=== PATIENT | female | born 1995 | race Two or more races ===

== ENCOUNTER 2018-01-06 14:35 | Observation (INO) | payer MEDICAID ==
[~2018-01-06] VITALS: Ht 160 cm; Wt 53.5 kg
[2018-01-06] MEDS ORDERED: LACTATED RINGER'S 1,000 ML IV ONE (15:15)
== END 2018-01-06 16:25 | disposition home or self-care (01) | DRG 566 ==
LOC: LDRP 14:35
PROVIDERS: ADMIT Specialist; ATTEND Specialist
DX: O26.892 Other specified pregnancy related conditions, second trimester (principal); R10.9 Unspecified abdominal pain; Z3A.24 24 weeks gestation of pregnancy
CPT/HCPCS: 59025; 76805; 81002; G0378

== ENCOUNTER 2018-03-21 12:45 | Observation (INO) | payer MEDICAID | END 2018-03-21 13:35 | disposition home or self-care (01) | DRG 563 | LOC: LDRP 12:45 | PROVIDERS: ADMIT Specialist; ATTEND Specialist | DX: O60.03 Preterm labor without delivery, third trimester (principal); Z3A.34 34 weeks gestation of pregnancy | CPT/HCPCS: 59025; 81002; G0378 ==

== ENCOUNTER 2018-03-26 17:25 | Inpatient (IN) | payer MEDICAID ==
[~2018-03-26] VITALS: Ht 160 cm; Wt 59.9 kg
[2018-03-26] MEDS ORDERED: TERBUTALINE SULFATE 1 MG/ML 1ML VIAL SC ONE (18:25)
[2018-03-26] MEDS ORDERED: LACTATED RINGER'S 1,000 ML IV ONE (18:33)
[2018-03-26] MEDS ORDERED: TERBUTALINE SULFATE 1 MG/ML 1ML VIAL SC PRN (18:45)
[2018-03-26 19:31] LABS: Alcohol, Urine < 3.0 mg/dL (0-5); Amphetamine Screen, Urine NEGATIVE (NEGATIVE); Barbiturate Scree,Urine NEGATIVE (NEGATIVE); Benzodiazephine Screen, Urine NEGATIVE (NEGATIVE); Cannabinoid Screen, Urine NEGATIVE (NEGATIVE); Cocaine Screen, Urine NEGATIVE (NEGATIVE); Opiate Scree,Urine NEGATIVE (NEGATIVE); Phencyclidine Screen, Urine NEGATIVE (NEGATIVE)
[2018-03-26 19:34] LABS: Urine Bacteria NONE SEEN /hpf (None Seen); Urine Blood TRACE /uL (Negative); Urine Specific Gravity 1.024 (1.001-1.035); Urine WBC <1 /hpf (0 - 5)
[2018-03-26] MEDS ORDERED: BETAMETHASONE ACET (6MG/ML) 5ML VIAL IM ONE (21:00)
[2018-03-26] MEDS ORDERED: BETAMETHASONE ACET (6MG/ML) 5ML VIAL ONE (21:00)
[2018-03-26] MEDS ORDERED: MAGNESIUM SULFATE 40MG/ML 1,000 ML IV SCH (21:31)
[2018-03-26] MEDS ORDERED: MAGNESIUM SULFATE 100 ML IV ONE ×2 (21:45→21:59)
[2018-03-26] MEDS ORDERED: PENICILLIN G POT 5MIL/D5 50ML 50 ML IV ONE (22:00)
[2018-03-26 22:18] LABS: Basophils # (auto) 0 uL; Basophils % (auto) 0.3 % (0.0-2.0); Eosinophils # (auto) 0.1 uL; Eosinophils % (auto) 0.7 % (0.0-7.0); Hematocrit 30.3 % (36.0-46.0); Hemoglobin 10.1 g/dL (12.2-16.2); Lymphocytes % (auto) 22.6 % (10.0-50.0); Mean Corpuscular Hgb Conc. 33.4 g/dL (32.0-36.0); Mean Corpuscular Volume 86.6 fL (80.0-100.0); Monocytes # (auto) 0.6 uL; Monocytes % (auto) 6.5 % (0.0-12.0); Neutrophils # (auto) 6.3 uL; Neutrophils % (auto) 69.9 % (37.0-80.0); Platelet Count (auto) 332 10^3/uL (140-450); Red Cell Distribution Width 13.8 % (11.8-14.3)
[2018-03-26 22:33] LABS: INR 0.87 (0.9-1.15); Partial Thromboplastin Time 27.8 sec (23.78-33.04); Prothrombin Time 9.4 sec (9.27-12.13)
[2018-03-26 22:50] LABS: Albumin 2.3 g/dL (3.4-5.0); Calcium 7.9 mg/dL (8.5-10.1); Potassium 3.1 mmol/L (3.5-5.1)
[2018-03-26 22:53] LABS: BUN/Creatinine Ratio 12.7; Bilirubin, Total 0.2 mg/dL (0.2-1.0); Total Protein 6.3 g/dL (6.4-8.2)
[2018-03-26] MEDS ORDERED: NIFEdipine 10 MG CAP PO SCH (23:00)
[2018-03-27] MEDS ORDERED: MEPERIDINE HCL (25 MG/ML) 1ML VIAL IV PRN
[2018-03-27] MEDS ORDERED: PROMETHAZINE HCL 25 MG/ML 1ML IV PRN (00:15)
[2018-03-27] MEDS ORDERED: LACT. RINGERS/OXYTOCIN 20UNITS 1,000 ML IV SCH (01:14)
[2018-03-27] MEDS ORDERED: PHISODERM TOP SOLN 240ML BTL TOP PRN (01:15)
[2018-03-27] MEDS ORDERED: LIDOCAINE 2%HCL (LOCAL ANESTH.) INJ 20ML MDV ID PRN (01:15)
[2018-03-27] MEDS ORDERED: DERMOPLAST 60ML BOTTLE TOP PRN (01:15)
[2018-03-27] MEDS ORDERED: METHYLERGONOVINE MALEATE 0.2 MG/ML AMP IM PRN (01:15)
[2018-03-27] MEDS ORDERED: WITCH HAZEL-GLYCERIN PAD TOP PRN (01:15)
[2018-03-27] MEDS ORDERED: PENICILLIN G POT 5MILLION UNIT VIAL ONE (01:53)
[2018-03-27] MEDS ORDERED: cefTRIAXone 1GM/50ML D5W 50 ML IV SCH (02:00)
[2018-03-27] MEDS: PENICILLIN G POTASSIUM 2,500,000 UNITS in D5W 5% 50 ML IV SCH ×2 (02:40→06:00)
[2018-03-27] MEDS ORDERED: ONDANSETRON HCL 4 MG/2 ML VIAL ONE (04:11)
[2018-03-27] MEDS ORDERED: ONDANSETRON HCL 4 MG/2 ML VIAL IV ONE (04:30)
[2018-03-27] MEDS ORDERED: HYDR250I6 IM (06:11)
[2018-03-27] MEDS ORDERED: AMOX200S35 PO (06:11)
[2018-03-27] MEDS ORDERED: NIF10C PO (06:11)
[2018-03-27] MEDS ORDERED: PREN-96 PO (06:11)
[2018-03-27] MEDS ORDERED: BETAMETHASONE ACET (6MG/ML) 5ML VIAL IM ONE (09:10)
[2018-03-28 23:26] LABS: RPR Non Reactive (Non Reactive)
== END 2018-03-27 10:00 | disposition home or self-care (01) | DRG 563 ==
LOC: OBSVTOIN 17:25 → LDRP 17:25
PROVIDERS: ADMIT Specialist; ATTEND Specialist
DX: O60.03 Preterm labor without delivery, third trimester (principal); Z3A.35 35 weeks gestation of pregnancy
CPT/HCPCS: 36415; 51702; 59025; 76805; 76817; 80053; 80307; 81001; 83735; 85025; 85610; 85730; 86592; 86850; 86900; 86901; 94760; 96361; 96365; 96366; 96372; 96374; 96375; G0378; J0696; J2405; J2540; J7060

== ENCOUNTER 2018-04-06 23:35 | Observation (INO) | payer MEDICAID ==
[~2018-04-06 23:35] MED LIST: AMOX200S35 PO; HYDR250I6 IM; NIF10C PO; PREN-96 PO
== END 2018-04-07 00:35 | disposition home or self-care (01) | DRG 566 ==
LOC: LDRP 23:35
PROVIDERS: ADMIT Obstetrics & Gynecology; ATTEND Obstetrics & Gynecology
DX: O46.93 Antepartum hemorrhage, unspecified, third trimester (principal); O26.893 Other specified pregnancy related conditions, third trimester; O62.9 Abnormality of forces of labor, unspecified; R51 Headache; Z3A.36 36 weeks gestation of pregnancy
CPT/HCPCS: 59025; 81002; G0378

== ENCOUNTER 2020-05-31 13:58 | Emergency (ER) | payer MEDICAID ==
[~2020-05-31] VITALS: Ht 160 cm; Wt 49.9 kg
[2020-05-31 14:00] VITALS: BP 104/71
[2020-05-31 14:33] LABS: Urine Bacteria NONE SEEN /hpf (None Seen); Urine Blood 2+ /uL (Negative); Urine Hyaline Cast FEW /lpf (0 - 2); Urine Mucus FEW (None Seen); Urine Specific Gravity 1.024 (1.001-1.035); Urine WBC 66 /hpf (0 - 5)
[2020-05-31] MEDS ORDERED: cefTRIAXone SOD 1,000 MG VL IM ONE (15:15)
[2020-05-31] MEDS ORDERED: IBUPROFEN 600 MG TAB PO ONE (15:15)
== END 2020-05-31 15:56 | disposition home or self-care (01) ==
LOC: ER 13:58
DX: N30.00 Acute cystitis without hematuria (principal); Z79.899 Other long term (current) drug therapy
CPT/HCPCS: 81001; 81025; 96372; 99283; J0696

== ENCOUNTER 2021-04-19 23:32 | Emergency (ER) | payer MEDICAID ==
[~2021-04-19] VITALS: Ht 160 cm; Wt 49.9 kg
[2021-04-19 23:32] VITALS: BP 119/80
== END 2021-04-20 02:43 | disposition left against medical advice (07) ==
LOC: ER 23:32
DX: R21 Rash and other nonspecific skin eruption (principal); Z53.21 Procedure and treatment not carried out due to patient leaving prior to being seen by health care provider

== ENCOUNTER 2021-06-17 14:30 | Emergency (ER) | payer MEDICAID ==
[~2021-06-17] VITALS: Ht 160 cm; Wt 49.9 kg
[2021-06-17 15:34] LABS: Urine Bacteria NONE SEEN /hpf (None Seen); Urine Blood 2+ /uL (Negative); Urine Mucus FEW (None Seen); Urine Specific Gravity 1.028 (1.001-1.035); Urine WBC 2 /hpf (0 - 5)
[2021-06-17 15:38] LABS: Basophils # (auto) 0 10 ^3/uL (0-0.2); Basophils % (auto) 0.7 % (0.0-2.0); Eosinophils # (auto) 0.1 10 ^3/uL (0-0.8); Eosinophils % (auto) 1.7 % (0.0-7.0); Hematocrit 38.3 % (36.0-46.0); Hemoglobin 13.3 g/dL (12.2-16.2); Lymphocytes # (auto) 1.9 10 ^3/uL (0.4-5.4); Lymphocytes % (auto) 31.4 % (10.0-50.0); Mean Corpuscular Hemoglobin 30.9 pg (28.0-32.0); Mean Corpuscular Hgb Conc. 34.8 g/dL (32.0-36.0); Mean Corpuscular Volume 88.7 fL (80.0-100.0); Monocytes # (auto) 0.5 10 ^3/uL (0-1.3); Monocytes % (auto) 8.3 % (0.0-12.0); Neutrophils # (auto) 3.5 10 ^3/uL (1.6-8.6); Neutrophils % (auto) 57.9 % (37.0-80.0); Red Blood Cells 4.32 10^6/uL (4.0-5.20); Red Cell Distribution Width 13.8 % (11.8-14.3); White Blood Cell 6.1 10^3/uL (4.4-10.8)
[2021-06-17 17:52] VITALS: BP 104/79
== END 2021-06-17 17:55 | disposition home or self-care (01) ==
LOC: ER 14:30
DX: O20.0 Threatened abortion (principal); Z79.899 Other long term (current) drug therapy; Z3A.01 Less than 8 weeks gestation of pregnancy
CPT/HCPCS: 36415; 76801; 76817; 81001; 84702; 85025

== ENCOUNTER 2021-07-01 22:25 | Emergency (ER) | payer MEDICAID ==
[~2021-07-01] VITALS: Ht 160 cm; Wt 50.8 kg
[2021-07-01 23:21] LABS: Basophils # (auto) 0 10 ^3/uL (0-0.2); Basophils % (auto) 0.6 % (0.0-2.0); Eosinophils # (auto) 0.2 10 ^3/uL (0-0.8); Eosinophils % (auto) 1.9 % (0.0-7.0); Hematocrit 36.2 % (36.0-46.0); Hemoglobin 12.4 g/dL (12.2-16.2); Lymphocytes % (auto) 36.8 % (10.0-50.0); Mean Corpuscular Hemoglobin 30.6 pg (28.0-32.0); Mean Corpuscular Hgb Conc. 34.3 g/dL (32.0-36.0); Mean Corpuscular Volume 89.4 fL (80.0-100.0); Monocytes # (auto) 0.5 10 ^3/uL (0-1.3); Monocytes % (auto) 6.5 % (0.0-12.0); Neutrophils # (auto) 4.5 10 ^3/uL (1.6-8.6); Neutrophils % (auto) 54.2 % (37.0-80.0); Nucleated Red Blood Cells % 0.2 %; Red Blood Cells 4.05 10^6/uL (4.0-5.20); Red Cell Distribution Width 13.7 % (11.8-14.3); White Blood Cell 8.2 10^3/uL (4.4-10.8)
[2021-07-01 23:39] LABS: Albumin 3.5 g/dL (3.4-5.0); BUN/Creatinine Ratio 24.6; Calcium 8.2 mg/dL (8.5-10.1); Potassium 3.7 mmol/L (3.5-5.1)
[2021-07-01 23:41] LABS: Bilirubin, Total 0.2 mg/dL (0.2-1.0); Total Protein 6.8 g/dL (6.4-8.2)
[2021-07-02 01:28] LABS: Urine Bacteria NONE SEEN /hpf (None Seen); Urine Blood 1+ /uL (Negative); Urine Specific Gravity 1.032 (1.001-1.035); Urine WBC 20 /hpf (0 - 5)
[2021-07-02 02:45] VITALS: BP 110/78
== END 2021-07-02 02:51 | disposition home or self-care (01) ==
LOC: ER 22:25
DX: O20.0 Threatened abortion (principal); R10.32 Left lower quadrant pain; Z3A.08 8 weeks gestation of pregnancy
CPT/HCPCS: 36415; 76801; 80053; 81001; 84702; 85025; 86850; 86900; 86901; 87086

== ENCOUNTER 2021-08-07 06:09 | Emergency (ER) | payer MEDICAID ==
[~2021-08-07] VITALS: Ht 160 cm; Wt 51.7 kg
[2021-08-07 08:50] LABS: Urine Bacteria NONE SEEN /hpf (None Seen); Urine Blood 1+ /uL (Negative); Urine Mucus FEW (None Seen); Urine Specific Gravity 1.031 (1.001-1.035); Urine WBC 2 /hpf (0 - 5)
[2021-08-07 09:16] VITALS: BP 107/53
== END 2021-08-07 09:18 | disposition home or self-care (01) ==
LOC: ER 06:09
DX: O26.891 Other specified pregnancy related conditions, first trimester (principal); S30.1XXA Contusion of abdominal wall, initial encounter; Z3A.13 13 weeks gestation of pregnancy; W22.8XXA Striking against or struck by other objects, initial encounter; Y93.89 Activity, other specified; Y92.89 Other specified places as the place of occurrence of the external cause; Y99.8 Other external cause status
CPT/HCPCS: 36415; 76801; 81001; 84702

== ENCOUNTER 2021-10-22 21:18 | Observation (INO) | payer MEDICAID | END 2021-10-22 23:13 | disposition home or self-care (01) | LOC: LDRP 21:18 | PROVIDERS: ADMIT Obstetrics & Gynecology; ATTEND Obstetrics & Gynecology | DX: O26.892 Other specified pregnancy related conditions, second trimester (principal); M24.20 Disorder of ligament, unspecified site; O36.8120 Decreased fetal movements, second trimester, not applicable or unspecified; O62.9 Abnormality of forces of labor, unspecified; Z3A.23 23 weeks gestation of pregnancy | CPT/HCPCS: 59025; 76815; 81002; G0378 ==